=== PATIENT | male | born 1980 | race Caucasian/White ===

== ENCOUNTER 2019-11-12 07:44 | Emergency (ER) | payer BC ==
--- OUTSIDE RECORDS SUMMARY | 2019-11-12 07:46 | XMS REPORT | Continuity of Care Document ---
:1980 Author Organization [facility] t Address [address] [place] [address] Care Team Providers Name Role Phone Unavailable Unavailable Unavailable Payers Payer Name Policy Type Policy Number Effective Date Expiration Date S ource Problems This patient has no known problems. Allergies, Adverse Reactions, Alerts Allergy Allergy Status Severity Reaction(s) Onset Inactive Treating Comm ents Source Name Type Date Date Clinician Penic[place] DA Active ME 2019- [facility] ins 06-23 [facility] 00:00: d 00 [facility] erythrom DA Active SV 2017-04 [facility] ycin 04-10 [facility] base 00:00: d [facility] EES - DA Active U 2001-0 [facility] ERYTHROM 06-10 [facility] YCIN 00:00: d 00 [facility] Center No Known DA Active U 2001-0 [facility] Contrast 06-10 [facility] Allergie 00:00: d s 00 Medical Center No Known DA Active U 2001-0 [facility] Food 06-10 [facility] Allergie 00:00: d s 00 [facility] No Known DA Active U 2001-0 [facility] Other - [facility] Allergie 00:00: d s 00 Medical Center PENICILL DA Active U 2001-0 [facility] IN 06-10 [facility] 00:00: d 00 Medical Center Medications This patient has no known medications. Procedures This patient has no known procedures. Results Test Description Test Time Test Comments Results Result Sourc e Comments - XR FOOT 3 + V 2019-09-12 FAX: Y BI 13:36:00 Lj Agrawal MD [phone] [place]: St: REG FAX: Joe Maciel [phone] Name: EZRA RIDDLE [facility] [place] : 1980 Age/S: 39/M [address] Unit #: [id number] Loc: [place] [address] Phys: Joe Browning MD Acct: [id number] Dis Date: Status: REG CLI PHONE #: [phone] Exam Date: 09/12/2019 1232 FAX #: [phone] Reason: INFLAMMATORY POLYARTHROPATHY EXAMS: CPT CODE: [id number] XR FOOT 3 + [place] [address] X-ray right foot. Location code: B2 INDICATION: Inflammatory polyarthropathy FINDINGS: No priors. No evidence of an acute fracture or dislocation. Bones are well-mineralized and joint spaces well-maintained. Small plantar calcaneal spur. Mild soft tissue swelling. IMPRESSION: 1. No acute osseous abnormality. X-ray left foot. Location code: B2 INDICATION: Inflammatory polyarthropathy FINDINGS: No priors. No evidence of an acute fracture or dislocation. Bones are well-mineralized and joint spaces well-maintained. Small plantar calcaneal spur. Mild soft tissue swelling. IMPRESSION: 1. No acute osseous abnormality. at 8397 Reported and signed by: Luc Luque MD CC: Lj Agrawal MD; Joe Browning MD Technologist: СВЕТЛАНА LAZARO Trnscrd Date/Time/By: 09/12/2019 (5606) : By: [email or web address] PAGE 1 Signed Report FAX: Lj Mcnamara MD [phone] [place]: [facility]: REG FAX: Joe Maciel [phone] Name: EZRA RIDDLE [facility] : 1980 Age/S: 39/M [address] Unit #: [id number] Loc: [place] [address] Phys: Joe Browning MD Acct: [id number] Dis Date: Status: REG CLI PHONE #: [phone] Exam Date: 09/12/2019 1232 FAX #: [phone] Reason: INFLAMMATORY POLYARTHROPATHY EXAMS: CPT CODE: [id number] XR FOOT 3 [place] [address] <Continued> Orig Print D/T: S: 09/12/2019 (9088) PAGE 2 Signed Report - XR HAND 3 + V 2019-09-12 FAX: Rogerio BI 13:24:00 Lj Agrawal MD [phone] [place]: [facility]: REG FAX: Joe Maciel [phone] Name: EZRA RIDDLE [facility] : 1980 Age/S: 39/M [address] Unit #: [id number] Loc: [place] [address] Phys: Joe Browning MD Acct: [id number] Dis Date: Status: REG CLI PHONE #: [phone] Exam Date: 09/12/2019 1232 FAX #: [phone] Reason: INFLAMMATORY POLYARTHROPATHY EXAMS: CPT CODE: [id number] XR HAND 3 + [place] [address] Location code: B2 X-ray left hand 3 views. INDICATION: Inflammatory polyarthropathy. FINDINGS: No priors. No evidence of an acute fracture or dislocation. Chronic tuft injury involving the distal phalanges of the 4th and 5th digits. Minimal narrowing of the radiocarpal and 1st carpometacarpal joints. Moderate narrowing of the 1st MCP joint. No osseous erosive change. Carpal row is intact. Distal radioulnar joint is intact. 4.5 mm of negative ulnar variance. Mild soft tissue swelling. IMPRESSION: 1. No acute osseous abnormality. Mild soft tissue swelling. 2. Arthritis. Location code: B2 X-ray right hand 3 views. INDICATION: Inflammatory polyarthropathy. FINDINGS: No priors. No evidence of an acute fracture or dislocation. Chronic tuft fracture distal phalanx 4th digit. Minimal narrowing of the radiocarpal and 1st carpal metacarpal joints. Moderate narrowing of the 1st MCP joint. No osseous erosive change. Carpal row is intact. Distal radioulnar joint is intact. 6 mm of negative ulnar variance. Mild soft tissue swelling. IMPRESSION: 1. No acute osseous abnormality. Mild soft tissue swelling. 2. Arthritis at 1324 Reported and signed by: Luc Luque MD PAGE 1 Signed Report (CONTINUED) FAX: Lj Mcnamara MD [phone] [place]: St: [facility] FAX: Joe Maciel [phone] Name: EZRA RIDDLE [facility] [place] : 1980 Age/S: 39/M [address] Unit #: [id number] Loc: [place] [address] Phys: Joe Browning MD Acct: [id number] Dis Date: Status: REG CLI PHONE #: [phone] Exam Date: 09/12/2019 1232 FAX #: [phone] Reason: INFLAMMATORY POLYARTHROPATHY EXAMS: CPT CODE: [id number] XR HAND 3 [place] [address] <Continued> CC: Lj Agrawal MD; Joe Browning MD Technologist: СВЕТЛАНА LAZARO Date/Time/By: 09/12/2019 (5917) : By: [email or web address] PAGE 2 Signed Report FAX: Lj Mcnamara MD [phone] [place]: [facility]: REG FAX: Joe Maciel [phone] Name: EZRA RIDDLE [facility] : 1980 Age/S: 39/M [address] Unit #: [id number] Loc: [place] [address] Phys: Joe Browning MD Acct: [id number] Dis Date: Status: REG CLI PHONE #: [phone] Exam Date: 09/12/2019 1232 FAX #: [phone] Reason: INFLAMMATORY POLYARTHROPATHY EXAMS: CPT CODE: [id number] XR HAND 3 [place] [address] <Continued> Orig Print D/T: S: 09/12/2019 (0183) PAGE 3 Signed Report - XR WRIST 3 + V 2019-09-12 FAX: Y BI 13:22:00 Lj Agrawal MD [phone] [place]: [facility]: REG FAX: Joe Maciel [phone] Name: EZRA RIDDLE : 1980 Age/S: 39/M [address] Unit #: [id number] Loc: [place] [address] Phys: Joe Browning MD Acct: [id number] Dis Date: Status: REG CLI PHONE #: [phone] Exam Date: 09/12/2019 1232 FAX #: [phone] Reason: INFLAMMATORY POLYARTHROPATHY EXAMS: CPT CODE: [id number] XR WRIST 3 + [place] [address] Location code: B2 X-ray left wrist 3 views. INDICATION: Inflammatory polyarthropathy. FINDINGS: No priors. No evidence of an acute fracture or dislocation. Minimal narrowing of the radiocarpal and 1st carpometacarpal joints. Carpal row is intact. Distal radioulnar joint is intact. 4.5 mm of negative ulnar variance. Mild soft tissue swelling. IMPRESSION: 1. No acute osseous abnormality. Mild soft tissue swelling. Location code: B2 X-ray right wrist 3 views. INDICATION: Inflammatory polyarthropathy. FINDINGS: No priors. No evidence of an acute fracture or dislocation. Minimal narrowing of the radiocarpal and 1st carpal metacarpal joints. Carpal row is intact. Distal radioulnar joint is intact. 6 mm of negative ulnar variance. Mild soft tissue swelling. IMPRESSION: 1. No acute osseous abnormality. Mild soft tissue swelling. at 1322 Reported and signed by: Luc Luque MD CC: Lj Agrawal MD; Joe Browning MD Technologist: СВЕТЛАНА LAZARO Trnscrd Date/Time/By: 09/12/2019 (1322) : By: [email or web address] PAGE 1 Signed Report FAX: Lj Mcnamara MD [phone] [place]: St: REG FAX: Joe Maciel [phone] Name: EZRA RIDDLE [facility] : 1980 Age/S: 39/M [address] Unit #: [id number] Loc: [place] [address] Phys: Joe Browning MD Acct: [id number] Dis Date: Status: REG CLI PHONE #: [phone] Exam Date: 09/12/2019 1232 FAX #: [phone] Reason: INFLAMMATORY POLYARTHROPATHY EXAMS: CPT CODE: [id number] XR WRIST 3 [place] [address] <Continued> Orig Print D/T: S: 09/12/2019 (1580) PAGE 2 Signed Report - XR L-SPINE 2019-09-12 FAX: Y 4+VIEWS 13:21:00 Lj Agrawal MD [phone] [place]: [facility]: [facility] FAX: Joe Maciel [phone] Name: EZRA RIDDLE [facility] [place] : 1980 Age/S: 39/M [address] Unit #: [id number] Loc: [place] [address] Phys: Joe Browning MD Acct: [id number] Dis Date: Status: REG CLI PHONE #: [phone] Exam Date: 09/12/2019 1232 FAX #: [phone] Reason: INFLAMMATORY POLYARTHROPATHY EXAMS: CPT CODE: [id number] XR L-SPINE 4+VIEWS 27698 EXAM: XR LUMBAR SPINE 5 VIEWS INDICATION: INFLAMMATORY POLYARTHROPATHY LOCATION: B2 COMPARISON: None available TECHNIQUE: AP, coned lateral, oblique and lateral radiographs of the lumbar spine FINDINGS: 5 lumbar type, non-rib bearing vertebral bodies are present. The vertebral bodies are normal in height, alignment and density. The facet joints and spinous processes are normal in alignment. There is facet joint arthropathy the lower lumbar spine. There is disc height loss at L5-S1. The remaining intervertebral disc spaces are normal. Sacroiliac joints are normal. No soft tissue abnormality is identified. IMPRESSION: No acute osseous abnormality of the lumbar spine. 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 at 1321 Reported and signed by: Laya Queen MD CC: Lj Agrawal MD; Joe Browning MD Technologist: СВЕТЛАНА LAZARO [facility] Date/Time/By: 09/12/2019 (1321) : By: [email or web address] PAGE 1 Signed Report FAX: Lj Mcnamara MD [phone] [place]: St: REG FAX: Joe Maciel [phone] Name: EZRA RIDDLE : 1980 Age/S: 39/M [address] Unit #: [id number] Loc: [place] [address] Phys: Joe Browning MD Acct: [id number] Dis Date: Status: REG CLI PHONE #: [phone] Exam Date: 09/12/2019 1232 FAX #: [phone] Reason: INFLAMMATORY POLYARTHROPATHY EXAMS: CPT CODE: [id number] XR L-SPINE 4+VIEWS 54952 <Continued> Orig Print D/T: S: 09/12/2019 (9678) PAGE 2 Signed Report - XR KNEE 3 V BI 2019-09-12 FAX: Y 13:21:00 Lj Agrawal MD [phone] [place]: St: REG FAX: Y Joe Browning [phone] Name: EZRA RIDDLE [facility] : 1980 Age/S: 39/M [address] Unit #: [id number] Loc: [place] [address] Phys: Joe Browning MD Acct: [id number] Dis Date: Status: REG CLI PHONE #: [phone] Exam Date: 09/12/2019 1232 FAX #: [phone] Reason: INFLAMMATORY POLYARTHROPATHY EXAMS: CPT CODE: [id number] XR KN[place] [address] X-ray right knee. INDICATION: Pain FINDINGS: No priors. No evidence of an acute fracture or dislocation. Bones are well-mineralized and joint spaces well-maintained. Small Joint effusion seen. Mild medial and prepatellar soft tissue edema. IMPRESSION: 1. No acute osseous abnormality. X-ray left knee. INDICATION: Pain FINDINGS: No priors. No evidence of an acute fracture or dislocation. Bones are well-mineralized and joint spaces well-maintained. Small Joint effusion seen. Mild medial and prepatellar soft tissue edema. IMPRESSION: 1. No acute osseous abnormality. at 1321 Reported and signed by: Luc Luque MD CC: Lj Agrawal MD; Joe Browning MD Technologist: СВЕТЛАНА LAZARO [facility] Date/Time/By: 09/12/2019 (1321) : By: [email or web address] PAGE 1 Signed Report FAX: Lj Mcnamara MD [phone] [place]: [facility]: REG FAX: Joe Maciel [phone] Name: EZRA RIDDLE [facility] : 1980 Age/S: 39/M [address] Unit #: [id number] Loc: [place] [address] Phys: Joe Browning MD Acct: [id number] Dis Date: Status: REG CLI PHONE #: [phone] Exam Date: 09/12/2019 1232 FAX #: [phone] Reason: INFLAMMATORY POLYARTHROPATHY EXAMS: CPT CODE: [id number] XR K[place] [address] <Continued> Orig Print D/T: S: 09/12/2019 (8884) PAGE 2 Signed Report - XR CHEST 2 V 2019-09-12 FAX: Y 13:20:00 Lj Agrawal MD [phone] [place]: [facility]: REG FAX: Joe Maciel [phone] Name: EZRA RIDDLE [facility] : 1980 Age/S: 39/M [address] Unit #: [id number] Loc: [place] [address] Phys: Joe Browning MD Acct: [id number] Dis Date: Status: REG CLI PHONE #: [phone] Exam Date: 09/12/2019 1232 FAX #: [phone] Reason: INFLAMMATORY POLYARTHROPATHY EXAMS: CPT CODE: [id number] XR CHEST 2 V 03201 Location code: B2 HISTORY: Inflammatory polyarthropathy TECHNIQUE: Frontal and lateral views of the chest were obtained. FINDINGS: The cardiomediastinal silhouette is unremarkable. The trachea is midline. The lungs are clear. There is no effusion or pneumothorax. The bones are intact. IMPRESSION: No acute pulmonary process. at 1320 Reported and signed by: Luc Luque MD CC: Lj Agrawal MD; Joe Browning MD Technologist: СВЕТЛАНА LAZARO Date/Time/By: 09/12/2019 (1320) : By: [email or web address] PAGE 1 Signed Report FAX: Lj Mcnamara MD [phone] [place]: St: [facility] FAX: Joe Maciel [phone] Name: EZRA RIDDLE [facility] [place] : 1980 Age/S: 39/M [address] Unit #: [id number] Loc: [place] [address] Phys: Joe Browning MD Acct: [id number] Dis Date: Status: REG CLI PHONE #: [phone] Exam Date: 09/12/2019 1232 FAX #: [phone] Reason: INFLAMMATORY POLYARTHROPATHY EXAMS: CPT CODE: [id number] XR CHEST 2 V 09294 <Continued> Orig Print D/T: S: 09/12/2019 (8159) PAGE 2 Signed Report - XR C-SPINE 2-3 2019-09-12 FAX: Y VIEWS 13:18:00 Lj Agrawal MD [phone] [place]: St: REG FAX: Joe Maciel [phone] Name: EZRA RIDDLE [facility] [place] : 1980 Age/S: 39/M [address] Unit #: [id number] Loc: [place] [address] Phys: Joe Browning MD Acct: [id number] Dis Date: Status: REG CLI PHONE #: [phone] Exam Date: 09/12/2019 1232 FAX #: [phone] Reason: INFLAMMATORY POLYARTHROPATHY EXAMS: CPT CODE: [id number] XR C-SPINE 2-3 VIEWS 49498 EXAMINATION: CERVICAL SPINE 4 VIEWS INDICATION: INFLAMMATORY POLYARTHROPATHY LOCATION: B2 COMPARISON: CT dated August 03, 2015 TECHNIQUE: AP, swimmer's, open-mouth and lateral radiograph were obtained of the cervical spine. FINDINGS: 7 cervical vertebral bodies are identified on the lateral image. The atlantoaxial and atlantooccipital articulations are normal. The vertebral bodies are normal in height and density. There is straightening of the normal cervical lordosis. The facet joints and spinous processes are normal in alignment. The intervertebral disc heights are normal. The prevertebral soft tissues are normal. IMPRESSION: No acute abnormality of the cervical spine. at 1318 Reported and signed by: Laya Queen MD CC: Lj Agrawal MD; Joe Browning MD Technologist: СВЕТЛАНА LAZARO [facility] Date/Time/By: 09/12/2019 (3654) : By: [email or web address] PAGE 1 Signed Report FAX: Lj Mcnamara MD [phone] [place]: St: REG FAX: Joe Maciel [phone] Name: EZRA RIDDLE [facility] [place] : 1980 Age/S: 39/M [address] Unit #: [id number] Loc: [place] [id number] Phys: Joe Browning MD Acct: [id number] Dis Date: Status: REG CLI PHONE #: [phone] Exam Date: 09/12/2019 1232 FAX #: [phone] Reason: INFLAMMATORY POLYARTHROPATHY EXAMS: CPT CODE: [id number] XR C-SPINE 2-3 VIEWS 92461 <Continued> Orig Print D/T: S: 09/12/2019 (9482) PAGE 2 Signed Report - DUP 2019-09-05 FAX: Chris SALINAS/ORALIA/SC/LTD 07:49:00 Fer Dahl MD [phone] [place]: [facility] St: DIS Name: EZRA RIDDLE JR ED : 1980 Age/S: 39/M [address] [facility] Unit #: [id number] Loc: [address] [place] [address] Phys: Fer Dahl MD Acct: [id number] Dis Date: 20190904 Status: DIS IN PHONE #: Exam Date: 09/04/20196 FAX #: Reason: flank pain EXAMS: CPT CODE: [id number] DUP AB/PEL/SC/LTD 29374 EXAM: - US SCROTUM AND CNTS LOCATION: H61 INDICATION/CLINICAL HISTORY: testicular pain COMPARISON: None available.. TECHNIQUE: Grayscale, color doppler, and doppler waveform analysis was performed of the hemiscrotum bilaterally. FINDINGS: RIGHT HEMISCROTUM: Right Testicle Size - 3.7 x 2.1 x 5.3 cm Intratesticular flow - there is normal arterial and venous flow present. Parenchyma- Normal homogeneous echotexture without intratesticular mass. Epididymis - normal Additional findings - none LEFT HEMISCROTUM: Left Testicle Size - 4.9 x 2.3 x 3.1 cm Intratesticular flow - normal Parenchyma- arterial flow could not be obtained. There is venous flow present throughout the left testicle. Epididymis - normal Additional findings - none IMPRESSION: 1. Absence of arterial flow within the left testicle with preserved PAGE 1 Signed Report (CONTINUED) FAX: Fer De MD [phone] [place]: [facility] St: DIS Name: JANESSA EZRA LOVETT [place] : 1980 Age/S: 39/M [address] [facility] Unit #: [id number] Loc: [address] [address] Phys: Fer Dahl MD Acct: [id number] Dis Date: 20190904 Status: DIS IN PHONE #: Exam Date: 09/04/2019 FAX #: Reason: flank pain EXAMS: CPT CODE: [id number] [facility] AB/PEL/SC/LTD 18005 <Continued> venous flow may reflect early partial torsion. 2. Normal perfusion of the right testicle. 3. No orchitis or testicular mass. at 0749 Reported and signed by: Freeman Patrick MD CC: Fer Dahl MD Technologist: SEVERINO AGUILA Date/Time/By: 09/05/2019 (0749) : By: [email or web address] PAGE 2 Signed Report FAX: Fer De MD [phone] [place]: [facility] St: DIS Name: JANESSAEZRA NELSON JR FSED : 1980 Age/S: 39/M [address] [facility] Unit #: [id number] Loc: [address] [address] Phys: Fer Dahl MD Acct: [id number] Dis Date: [id number] Status: DIS IN PHONE #: Exam Date: 09/04/2019 0315 FAX #: Reason: flank pain EXAMS: CPT CODE: [id number] DUP AB/PEL/SC/LTD 92610 <Continued> Orig Print D/T: S: 09/05/2019 (0749) PAGE 3 Signed Report Coronavirus 2019 nCoV Bedside 2019-09-04 07:35:00 Test Item Value Reference Range Interpretation Comme nts Coronavirus 2019 nCoV Bedside Negative NEGATIVE This test has been authorized by (test code = COVNONPUIBED) Adán DA under an EUA for use byauthorized la [employer]; This test has been a uthorized only for the detection o fnucleic acid from SARS-CoV-2, not for any other viruses orpatho gens; and This test is only au thorized for the duration of the declaration that circumstances e xist justifying theauthorizatio n of emergency use of in vitro ian gnostic testsfor detection and/o r diagnosis of COVID-19 under Spghhrb895(b)(1) of the Act, 21 U.S .C. 360bbb-3(b)(1), unless theauthorizatio n is terminated or revoked sooner. I attest I have received Administrative Approval to enter the order. YESLIPID PROFILE (CORONARY RISK)2019-09-04 03:52:00 Test Item Value Reference Range Interpretation Comments TRIGLYCERIDES (test 149 mg/dL 50-200 N code = TRIG) CHOLESTEROL (test code 154 mg/dL 120-200 N = CHOL) HDL CHOLESTEROL (test 36 mg/dL 32-96 N code = HDL) LIPOPROTEIN LDL (test 92 MG/DL 0-99 N code = LDLC) CORONARY RISK FACTOR 4.28 (test code = RISK) CHOL/HDL RISK MALE: 1/2 AVG 3.43 FEMALE: 1/2 AV G 3.27 AVG 4.97 AVG 4.44 2X AVG 9.55 2X AVG 7.05 3X AVG 23.39 3X AVG 11.04~~~~~~~~~~ ~~~~~~~ ~~~~~~~~~~~~~~~ ~~~~~~~ ~~~~~~~~~~~~~~~ ~~~~~~N [facility] ivan Education (NHEP ) Guidelines:~~~~ ~~~~~~~ ~~~~~~~~~~~~~~~ ~~~~~~~ ~~~~~~~~~~~~~~~ ~~~~~~~ ~~~~~ HDL Cholesterol<4 0mg/dL: HDL Cholesterol (Major risk factor for CHD)>60mg/dL: H DL Cholesterol (Ne gative risk factor for CHD)40-59mg/dL: Borderline Risk L DL Cholesterol<1 00mg/dL : Desirable LDL -C fhavzrkzyjuuo42 0-159mg /dL: Borderline High Risk LDL-C qrzdnuxyzmasl20 0-189mg /dL: High risk LDL-C concentration H DL-LDL Cholesterol is affected by a n umber of factors such as smoking, age an d sex.~~~~~~~~~~~ ~~~~~~~ ~~~~~~~~~~~~~~~ ~~~~~~~ ~~~~~~~~~~~~~~~ ~~~~~ - CT ABD PELVIS W/O [id number] 03:42:00 FAX: Fer De MD [phone] [place]: [facility] St: REG [facility]: [facility] 1980 Age/S: 39/M [address] [facility] Unit: [id number] Loc: [place] [address] Phys: Fer Dahl MD Acct: [id number] Dis Date: Status: REG ER PHONE #: Exam Date: 09/04/2019 0333 FAX #: Reason: flank pain EXAMS: CPT CODE: [id number] CT ABD PELVIS W/O CONT 11009 EXAM: - CT ABD PELVIS W/O CONT HISTORY: Flank pain. TECHNIQUE: Axial tomograms through the abdomen and pelvis were obtained without intravenous or enteric contrast. Coronal and sagittal reformatted images are provided. This exam was performed according to our departmental dose-optimization program, which includes automated exposure control, adjustment of the mA and/or kV according to patient size and/or use of iterative reconstruction technique. COMPARISON: None available time of interpretation. FINDINGS: The visualized lung bases are clear. The kidneys are symmetric in size. Right renal collecting system and right ureter are minimally prominent compared to left side. No renal or ureteral calculi are demonstrated. The unenhanced visualized spleen, pancreas, and bilateral adrenals demonstrate no significant abnormalities. There is fatty infiltration of the liver. There is no fluid collection or pelvic adenopathy. The unopacified bowel is unremarkable. The appendix is not identified. There are no secondary signs of appendicitis. Degenerative disc disease at L5-S1 level. IMPRESSION: Minimally prominent right ureter. No evidence of ureteral calculus. A recently passed calculus from right side is a possibility. Other findings as above. PAGE 1 Signed Report (CONTINUED) FAX: Fer De MD [phone] [place]: [facility] St: REG -- Name: EZRA RIDDLE JR FSED : 1980 Age/S: 39/M [address] [facility] Unit: [id number] Loc: [place] [address] Phys: Fer Dahl MD Acct: [id number] Dis Date: Status: REG ER PHONE #: ExamDate: 09/04/2019 4117 FAX #: Reason: flank pain EXAMS: CPT CODE: [id number] CT ABD PELVIS W/O CONT 22365 <Continued> at 0342 Reported and signed by: Mac Rahman MD CC: Fer Dahl MD Technologist: SEVERINO AGUILA Dt/Tm: 09/04/2019 (034)[email or web address] Orig Print D/T: S: 09/04/2019 (0346 PAGE 2 Signed ReportURINALYSIS [id number] 03:40:00 Test Item Value Reference Range Interpretation Comments UA COLOR (test code = COLU) YELLOW YELLOW UA APPEARANCE (test code = Clear CLEAR APPU) UA GLUCOSE DIPSTICK (test code Negative MG/DL NEGATIVE = DGLUU) UA BILIRUBIN DIPSTICK (test Negative NEGATIVE code = BILU) UA KETONE DIPSTICK (test code Negative MG/DL NEGATIVE = KETU) UA SPECIFIC GRAVITY (test code >=1.030 1.000-1.030 A = SGU) UA BLOOD DIPSTICK (test code = 2+ NEGATIVE A HOLLAND) UA PH DIPSTICK (test code = 5.5 4.5-8.5 ELI) UA PROTEIN DIPSTICK (test code NEGATIVE MG/DL NEGATIVE = PROU) UA UROBILINOGEN DIPSTICK (test 0.2 EU/dL <=1.0 code = URO) UA NITRITE DIPSTICK (test code Negative NEGATIVE = MARLEN) UA LEUKOCYTE ESTERASE DIPSTICK NEGATIVE NEGATIVE (test code = LEUU) UA WBC (test code = WBCU) 0-3 /HPF 0-3 UA RBC (test code = RBCU) 6-10 /HPF 0-3 UA EPITHELIAL CELLS (test code FEW /LPF NONE-FEW = EPIU) UA BACTERIA (test code = BACU) 1+ /HPF NEGATIVE A URINALYSIS [id number] 03:39:00 Test Item Value Reference Range Interpretation Comments UA COLOR (test code = COLU) YELLOW YELLOW UA APPEARANCE (test code = Clear CLEAR APPU) UA GLUCOSE DIPSTICK (test code Negative MG/DL NEGATIVE = DGLUU) UA BILIRUBIN DIPSTICK (test Negative NEGATIVE code = BILU) UA KETONE DIPSTICK (test code Negative MG/DL NEGATIVE = KETU) UA SPECIFIC GRAVITY (test code >=1.030 1.000-1.030 A = SGU) UA BLOOD DIPSTICK (test code = 2+ NEGATIVE A HOLLAND) UA PH DIPSTICK (test code = 5.5 4.5-8.5 ELI) UA PROTEIN DIPSTICK (test code NEGATIVE MG/DL NEGATIVE = PROU) UA UROBILINOGEN DIPSTICK (test 0.2 EU/dL <=1.0 code = URO) UA NITRITE DIPSTICK (test code Negative NEGATIVE = MARLEN) UA LEUKOCYTE ESTERASE DIPSTICK NEGATIVE NEGATIVE (test code = LEUU) UA WBC (test code = WBCU) /HPF 0-3 UA RBC (test code = RBCU) /HPF 0-3 UA EPITHELIAL CELLS (test code /LPF NONE-FEW = EPIU) UA BACTERIA (test code = BACU) /HPF NEGATIVE - US SCROTUM AND [id number] 03:23:00 FAX: Fer De MD [phone] [place]: [address]: REG Name: EZRA RIDDLE JRFSED : 1980 Age/S: 39/M [address] [facility] Unit#: [id number] Loc: [place] [address] Phys: Fer Dahl MD Acct: [id number] Dis Date: Status: REG ER PHONE #: Exam Date: 09/04/2019 0315 FAX #: Reason: testicular pain EXAMS: CPT CODE: [id number] US SCROTUM AND CNTS 04737 EXAM: - US SCROTUM AND CNTS LOCATION: H61 INDICATION/CLINICAL HISTORY: testicular pain COMPARISON: None available.. TECHNIQUE: Grayscale, color doppler, and doppler waveform analysis was performed of the hemiscrotum bilaterally. FINDINGS: RIGHT HEMISCROTUM:Right Testicle Size - 3.7 x 2.1 x 5.3 cm Intratesticular flow - there is normal arterial and venous flow present. Parenchyma- Normal homogeneous echotexture without intratesticular mass. Epididymis - normal Additional findings - none LEFT HEMISCROTUM: Left Testicle Size - 4.9 x 2.3 x 3.1 cm Intratesticular flow - normal Parenchyma- arterial flow could not be obtained. There is venous flow present throughout the left testicle. 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 2. Normal perfusion of the right testicle. 3. No orchitis or testicular mass. at 0323 Reported and signed by: Freeman Patrick MD CC: Fer Dahl MD Technologist: SEVERINO AGUILA Trnelenard Date/Time/By: 09/04/2019 (322) : By: [email or web address] PAGE 2 Signed Report FAX: Fer De MD [phone] [place]: [facility] St: REG Name: EZRA RIDDLE JR [facility] : 1980 Age/S: 39/M [address] [facility] Unit #: [id number] Loc: [place] [address] Phys: Fer Dahl MD Acct: [id number] Dis Date: Status: REG ER PHONE #: Exam Date: 09/04/2019314 FAX #: Reason: testicular pain EXAMS: CPT CODE: [id number] US SCROTUM AND CNTS 14953 <C ontinued> Orig Print D/T: S: 09/04/2019 (326) PAGE 3 Signed ReportCOMPREHENSIVE METABOLIC [id number] 02:29:00 Test Item Value Reference Range Interpretation Comments SODIUM (test code = 137 MMOL/L 135-147 N NA) POTASSIUM (test code 4.0 MMOL/L 3.6-5.2 N = K) CHLORIDE (test code = 103 MMOL/L 98-108 N CL) CARBON DIOXIDE (test 23 mmol/L 21-32 N code = CO2) GLUCOSE (test code = 147 mg/dL 70-110 H GLU) BLOOD UREA NITROGEN 24 MG/DL 6-21 H (test code = BUN) GLOMERULAR FILTRATION 71 >60 The es timated RATE (test code = glomerular filtration GFR) rate is compute d usingpatient ra ce, age (>18), sex, and serum creatinine. If anyof the needed data elements are mi ssing the Laboratory cannot compute an frandy mation of the glomerul ar filtration rate . CREATININE (test code 1.2 mg/dL 0.6-1.3 N = CREAT) TOTAL PROTEIN (test 7.7 g/dL 6.0-8.2 N code = PROT) ALBUMIN (test code = 3.8 G/DL 3.7-5.5 N ALB) CALCIUM (test code = 8.9 mg/dL 8.7-10.5 N CA) BILIRUBIN TOTAL (test 0.60 mg/dL 0.0-1.0 N code = BILT) SGOT/AST (test code = 31 UNITS/L 10-37 N AST) SGPT/ALT (test code = 52 UNITS/L 12-78 N ALT) ALKALINE PHOSPHATASE 61 UNITS/L 46-116 N (test code = ALKP) [id number] 02:29:00 Test Item Value Reference Range Interpretation Comments LIPASE (test code = LIP) 124 UNITS/L 73-393 N COMPREHENSIVE METABOLIC [id number] 02:23:00 Test Item Value Reference Range Interpretation Comments SODIUM (test code = NA) 137 MMOL/L 135-147 N POTASSIUM (test code = K) 4.0 MMOL/L 3.6-5.2 N CHLORIDE (test code = CL) 103 MMOL/L 98-108 N CARBON DIOXIDE (test code = CO2) 23 mmol/L 21-32 N GLUCOSE (test code = GLU) 147 mg/dL 70-110 H BLOOD UREA NITROGEN (test code = MG/DL 6-21 BUN) GLOMERULAR FILTRATION RATE (test >60 code = GFR) CREATININE (test code = CREAT) mg/dL 0.6-1.3 TOTAL PROTEIN (test code = PROT) g/dL 6.0-8.2 ALBUMIN (test code = ALB) G/DL 3.7-5.5 CALCIUM (test code = CA) mg/dL 8.7-10.5 BILIRUBIN TOTAL (test code = BILT) mg/dL 0.0-1.0 SGOT/AST (test code = AST) UNITS/L 10-37 SGPT/ALT (test code = ALT) UNITS/L 12-78 ALKALINE PHOSPHATASE (test code = UNITS/L 46-116 ALKP) [id number] 02:23:00 Test Item Value Reference Range Interpretation Comments LIPASE (test code = LIP) UNITS/L 73-393 CBC W/AUTO [id number] 02:18:00 Test Item Value Reference Range Interpretation Comments WHITE BLOOD CELL (test code = 10.6 x10 3/uL 5.0-12.0 N WBC) RED BLOOD CELL (test code = 5.44 x10 6/uL 4.70-6.10 N RBC) HEMOGLOBIN (test code = HGB) 16.0 g/dL 14.0-18.0 N HEMATOCRIT (test code = HCT) 47.8 % 37.0-49.0 N MEAN CELL VOLUME (test code = 88 fL 80-94 N MCV) MEAN CELL HGB (test code = MCH) 29.4 pg 27-31 N MEAN CELL HGB CONCENTRATION 33.5 g/dL 33-37 N (test code = MCHC) RED CELL DISTRIBUTION WIDTH 13.2 % 11.5-15.5 N (test code = RDW) PLATELET COUNT (test code = 335 x10 3/uL 130-400 N PLT) MEAN PLATELET VOLUME (test code 9.2 fL 9.4-16.4 L = MPV) NEUTROPHIL % (test code = NT%) 52.4 % 43-65 N IMMATURE GRANULOCYTE % (test 0.6 % 0.0-2.0 N code = IG%) LYMPHOCYTE % (test code = LY%) 34.0 % 20.5-45.5 N MONOCYTE % (test code = MO%) 8.5 % 5.5-11.7 N EOSINOPHIL % (test code = EO%) 4.1 % 0.9-2.9 H BASOPHIL % (test code = BA%) 0.4 % 0.2-1.0 N NEUTROPHIL # (test code = NT#) 5.57 x10 3/uL 2.2-4.8 H IMMATURE GRANULOCYTE # (test 0.06 x10 3/uL 0-0.03 H code = IG#) LYMPHOCYTE # (test code = LY#) 3.61 x10 3/uL 1.3-2.9 H MONOCYTE # (test code = MO#) 0.90 x10 3/uL 0.3-0.8 H EOSINOPHIL # (test code = EO#) 0.43 x10 3/uL 0.0-0.2 H BASOPHIL # (test code = BA#) 0.04 x10 3/uL 0.0-0.1 N FORESKIN, OTHER THAN [id number] 18:35:00 RUN DATE: 03/31/19 [facility] PAGE 1 RUN TIME: 1835 Specimen Inquiry RUN USER: INTERFACE PATIENT: EZRA RIDDLE JR LOC: MYRNA U #: [id number] AGE/SX: 38/M ROOM: RE03/28/19REG DR: Parveen Andrews MD : [birth year] BED: DIS: STATUS: [facility] TLOC: SPEC #: [id number] RECD: 03/28/19 STATUS: YOSHI LUX #: [id number] JASPAL: 03/28/19-[address] [facility] [address]: Parveen Andrews MD ENTERED: 03/28/19-1450 SP TYPE: FORESKIN OTHR DR: No Primary Care Physician ORDERED: PATHGM3/2, # OF BLOCKS/3, # OF SLIDES/3 TISSUES: A. FORESKIN B. VAS DEFERENS, NOS CLINICAL HISTORY DESIRED STERILIZATION FINAL MICROSCOPIC DIAGNOSIS A. FORES[place], CIRCUMCISION: - LICHEN SCLEROSUS B. VAS DEFERENS, VASECTOMY: - COMPLETE SURGICAL TRANSECTION OF BENIGN VAS DEFERENS (TWO PIECES) CPT: 29742, 86019 GROSS DESCRIPTION Specimen A: In formalin labeled with the patient's name, medical record number and "foreskin" is a 6.0 x 2.0 x 0.5 cm pale wesley, wrinkled portion of skin with scant subcutaneous soft tissue. Sectioning reveals no discrete masses. Account Retention Representative sections are submitted in cassette A1. Specimen B: In f ormalin labeled with the patient's name, medical record number and "vas deferens" are two chin-white cylindrical, tubular structures measuring 0.6 cm and 1.0 cm in length and 0.2 cm in diameter. Laterality is not indicated. The specimen is entirely submitted as follows: B1, shorter segment; B2, longer segment. OK/DB/tb Signed SIGNATURE ON FILE Ashutosh Poon 03/31/19 1375 END OF REPORT BASIC METABOLIC [id number] 11:06:00 Test Item Value Reference Range Interpretation Comments SODIUM (test code = 140 mmol/L 137-145 N NA) POTASSIUM (test code 4.3 mmol/L 3.4-5.0 N = K) CHLORIDE (test code = 104 mmol/L 98-107 N CL) CARBON DIOXIDE (test 28 mmol/L 22-30 N code = CO2) GLUCOSE (test code = 113 mg/dL 74-106 H GLU) BLOOD UREA NITROGEN 16 mg/dL 9-20 N (test code = BUN) GLOMERULAR FILTRATION 100 >60 The es timated RATE (test code = glomerular filtration GFR) rate is compute d usingpatient ra ce, age (>18), sex, and serum creatinine. If anyof the needed data elements are mi ssing the Laboratory cannot compute an frandy mation of the glomerul ar filtration rate . CREATININE (test code 0.9 mg/dL 0.7-1.3 N = CREAT) CALCIUM (test code = 8.8 mg/dL 8.4-10.2 N CA) [id number] 11:06:00 Test Item Value Reference Range Interpretation Comments SGOT/AST (test code = AST) 41 U/L 15-46 N URINALYSIS [id number] 10:55:00 Test Item Value Reference Range Interpretation Comments UA COLOR (test code = COLU) Yellow Yellow UA APPEARANCE (test code = Clear Clear APPU) UA GLUCOSE DIPSTICK (test Negative Negative code = DGLUU) UA BILIRUBIN DIPSTICK (test Negative Negative code = BILU) UA KETONE DIPSTICK (test code Negative mg/dL Negative = KETU) UA SPECIFIC GRAVITY (test 1.024 <1.030 code = SGU) UA BLOOD DIPSTICK (test code Negative Negative = HOLLAND) UA PH DIPSTICK (test code = 5.0 5.0-8.0 ELI) UA PROTEIN DIPSTICK (test NEGATIVE mg/dL Negative code = PROU) UA UROBILINOGEN DIPSTICK Negative mg/dL Negative (test code = URO) UA NITRITE DIPSTICK (test Negative Negative code = MARLEN) UA LEUKOCYTE ESTERASE NEGATIVE Negative DIPSTICK (test code = LEUU) UA WBC (test code = WBCU) 0-3 /HPF <4-5 UA RBC (test code = RBCU) 0-3 /HPF <4-5 UA BACTERIA (test code = None /HPF None-Rare BACU) UA SQUAMOUS CELLS (test code 0-5 (RARE) /HPF 0-5 (RARE) = SQU) UA MUCUS (test code = MUCU) 1+ /LPF <Rare A Spec Comments: PREOPCBC W/AUTO [id number] 10:50:00 Test Item Value Reference Range Interpretation Comments WHITE BLOOD CELL (test code = 9.6 x10 3/uL 5.0-12.0 N WBC) RED BLOOD CELL (test code = 5.52 x10 6/uL 4.70-6.10 N RBC) HEMOGLOBIN (test code = HGB) 16.1 g/dL 14.0-18.0 N HEMATOCRIT (test code = HCT) 49.9 % 37.0-49.0 H MEAN CELL VOLUME (test code = 90 fL 80-94 N MCV) MEAN CELL HGB (test code = MCH) 29.2 pg 27-31 N MEAN CELL HGB CONCENTRATION 32.3 g/dL 33-37 L (test code = MCHC) RED CELL DISTRIBUTION WIDTH 13.7 % 11.5-15.5 N (test code = RDW) PLATELET COUNT (test code = 320 x10 3/uL 130-400 N PLT) MEAN PLATELET VOLUME (test code 9.4 fL 9.4-16.4 N = MPV) NEUTROPHIL % (test code = NT%) 68.8 % 43-65 H IMMATURE GRANULOCYTE % (test 0.8 % 0.0-2.0 N code = IG%) LYMPHOCYTE % (test code = LY%) 19.0 % 20.5-45.5 L MONOCYTE % (test code = MO%) 7.5 % 5.5-11.7 N EOSINOPHIL % (test code = EO%) 3.5 % 0.9-2.9 H BASOPHIL % (test code = BA%) 0.4 % 0.2-1.0 N NUCLEATED RBC % (test code = 0.0 % 0-1.0 N NRBC%) NEUTROPHIL # (test code = NT#) 6.57 x10 3/uL 2.2-4.8 H IMMATURE GRANULOCYTE # (test 0.08 x10 3/uL 0-0.03 H code = IG#) LYMPHOCYTE # (test code = LY#) 1.82 x10 3/uL 1.3-2.9 N MONOCYTE # (test code = MO#) 0.72 x10 3/uL 0.3-0.8 N EOSINOPHIL # (test code = EO#) 0.33 x10 3/uL 0.0-0.2 H BASOPHIL # (test code = BA#) 0.04 x10 3/uL 0.0-0.1 N
--- NOTE | 2019-11-12 08:07 | ER ---
Nurse's Notes [facility] Name: Cong Ahmadi Jr Age: 39 yrs Sex: Male : 1980 Arrival Date: 11/12/2019 Time: 07:47 Bed 16 Private MD: Diagnosis: Rash and other nonspecific skin eruption Presentation: 11/11 08:01 Chief complaint: Patient states: Pt presents with c/o allergic rxn rash that started 2 jr10 weeks ago when he was started on hydroxychloroquine for RA. Pt reports that he is already on a steroid and was given an epi pen without relief. Denies any sob, airway patent, speaking in clear coherent sentences, ambulatory to room without difficulty. Coronavirus screen: Client denies travel out of the [place] in the last 14 days. At this time, the client does not indicate any symptoms associated with coronavirus-19. Ebola Screen: No symptoms or risks identified at this time. Onset: The symptoms/episode began/occurred gradually. Anaphylaxis evaluation, no signs or symptoms of anaphylaxis were noted. Initial Sepsis Screen: Does the patient meet any 2 criteria? No. Patient's initial sepsis screen is negative. Does the patient have a suspected source of infection? No. Patient's initial sepsis screen is negative. Risk Assessment: Do you want to hurt yourself or someone else?. Onset of symptoms is unknown. 08:01 Method Of Arrival: Ambulatory jr10 08:01 Acuity: BRANDON 3 jr10 Historical: - Allergies: 08:04 Hydroxychloroquine; jr10 08:07 PENICILLINS; jr10 08:07 Erythrocin; jr10 - Home Meds: 08:07 prednisone 20 mg Oral tab 1 tab 3 times per day [Active]; jr10 - PMHx: 08:07 Rheumatoid Arthritis; jr10 - Immunization history:: Adult Immunizations up to date. - Social history:: Smoking status: unknown. Screenin:05 Abuse screen: Denies threats or abuse. Denies injuries from another. Nutritional jr10 screening: No deficits noted. Tuberculosis screening: No symptoms or risk factors identified. Fall Risk None identified. Assessment: 08:05 Reassessment: see triage note. General: Appears in no apparent distress. Behavior is jr10 calm, cooperative, appropriate for age. Pain: Denies pain. Respiratory: Airway is patent Respiratory effort is even, unlabored, Respiratory pattern is regular, symmetrical, Breath sounds are clear bilaterally. 08:05 Derm: Skin is intact, Skin is dry, Skin is red, Skin temperature is warm Rash noted jr10 that is red. Vital Signs: 08:07 BP 140 / 100; Pulse 99; Resp 20; Temp 98.3(O); Pulse Ox 98% on R/A; Weight 154.22 kg; jr10 Height 5 ft. 9 in. (175.26 cm); Pain 0/10; 08:07 Body Mass Index 50.21 (154.22 kg, 175.26 cm) jr10 ED Course: 07:47 Patient arrived in ED. ag5 07:54 Mariajose Hernandez FNP-C [facility]. kb 07:54 Douglas Pollack MD is Attending Physician. kb 08:01 Amira Villanueva, RN is Primary Nurse. jr10 08:04 Triage completed. jr10 08:05 Arm band placed on. jr10 08:05 Patient has correct armband on for positive identification. Bed in low position. Call jr10 light in reach. 08:21 No provider procedures requiring assistance completed. Patient did not have IV access jr10 during this emergency room visit. Administered Medications: 08:18 CANCELLED (on back order; pt sent home with Rx): Pepcid 20 mg PO once jr10 Outcome: 08:06 Discharge ordered by . kb 08:22 Discharged to home ambulatory. jr10 08:22 Condition: good 08:22 Discharge instructions given to patient, Instructed on discharge instructions, follow up and referral plans. Demonstrated understanding of instructions, follow-up care, medications, Prescriptions given X 1. 08:22 Patient left the ED. jr10 Signatures: Mariajose Hernandez FNP-C FNP-Ckb Gaskin, Ajare ag5 Amira Villanueva, RN RN jr10
--- NOTE | 2019-11-12 08:07 | EDPHYS ---
Physician Documentation [facility] Name: Cong Ahmadi Jr Age: 39 yrs Sex: Male : 1980 Arrival Date: 11/12/2019 Time: 07:47 Bed 16 Private MD: ED Physician Douglas Pollack HPI: 11/11 08:17 This 39 yrs old Male presents to ER via Ambulatory with complaints of kb Allergic Reaction. 08:17 The patient presents with itching, rash. Onset: The symptoms/episode began/occurred 2 kb week(s) ago. Associated signs and symptoms: Pertinent positives: rash, Pertinent negatives: abdominal pain, Altered mental status chest pain, dysphagia, fever, headache, hives, Light headed nausea, shortness of breath, swelling, Syncope vomiting. Possible causes: hydroxychloroquine. At home the patient or guardian has treated the symptoms with steroids. Severity of symptoms: At their worst the symptoms were moderate in the emergency department the symptoms are unchanged. The patient has not experienced similar symptoms in the past. The patient has been recently seen by a physician:. Pt reports he was recently diagnosed with RA. His building custodial supervisor prescribed medications for that, but they weren't working so his PCP put him on hydroxychloroquine to treat it. States he was on that for 1-2 weeks and started having a rash. Has been to a different ER twice for this rash and is on prednisone 20mg TID currently, but rash and itching persist. . Historical: - Allergies: 08:04 Hydroxychloroquine; jr10 08:07 PENICILLINS; jr10 08:07 Erythrocin; jr10 - Home Meds: 08:07 prednisone 20 mg Oral tab 1 tab 3 times per day [Active]; jr10 - PMHx: 08:07 Rheumatoid Arthritis; jr10 - Immunization history:: Adult Immunizations up to date. - Social history:: Smoking status: unknown. ROS: 08:17 Constitutional: Negative for fever, chills, and weight loss, Cardiovascular: Negative kb for chest pain, palpitations, and edema, Respiratory: Negative for shortness of breath, cough, wheezing, and pleuritic chest pain, Abdomen/GI: Negative for abdominal pain, nausea, vomiting, diarrhea, and constipation, Back: Negative for injury and pain, MS/Extremity: Negative for injury and deformity, Neuro: Negative for headache, weakness, numbness, tingling, and seizure. 08:17 Skin: Positive for rash. Exam: 08:17 Constitutional: This is a well developed, well nourished patient who is awake, alert, kb and in no acute distress. Head/Face: Normocephalic, atraumatic. Chest/axilla: Normal chest wall appearance and motion. Nontender with no deformity. No lesions are appreciated. Cardiovascular: Regular rate and rhythm with a normal S1 and S2. No gallops, murmurs, or rubs. Normal PMI, no JVD. No pulse deficits. Respiratory: Lungs have equal breath sounds bilaterally, clear to auscultation and percussion. No rales, rhonchi or wheezes noted. No increased work of breathing, no retractions or nasal flaring. Abdomen/GI: Soft, non-tender, with normal bowel sounds. No distension or tympany. No guarding or rebound. No evidence of tenderness throughout. Back: No spinal tenderness. No costovertebral tenderness. Full range of motion. MS/ Extremity: Pulses equal, no cyanosis. Neurovascular intact. Full, normal range of motion. Neuro: Awake and alert, GCS 15, oriented to person, place, time, and situation. Cranial nerves II-XII grossly intact. Motor strength 5/5 in all extremities. Sensory grossly intact. Cerebellar exam normal. Normal gait. 08:17 Skin: consistent with drug rash, and is diffusely located. Vital Signs: 08:07 BP 140 / 100; Pulse 99; Resp 20; Temp 98.3(O); Pulse Ox 98% on R/A; Weight 154.22 kg; jr10 Height 5 ft. 9 in. (175.26 cm); Pain 0/10; 08:07 Body Mass Index 50.21 (154.22 kg, 175.26 cm) jr10 MDM: 08:05 Patient medically screened. kb 08:17 Data reviewed: vital signs, nurses notes. Data interpreted: Pulse oximetry: on room air kb is 98 %. Interpretation: normal. Counseling: I had a detailed discussion with the patient and/or guardian regarding: the historical points, exam findings, and any diagnostic results supporting the discharge/admit diagnosis, the need for outpatient follow up, a revenue cycle specialist, to return to the emergency department if symptoms worsen or persist or if there are any questions or concerns that arise at home. Special discussion: I have referred the patient to see his PCP for further evaluation of high blood pressure. ED course: Pt reports 140/100 is normal for him. States he lives out of town and will go home today to follow up with revenue cycle specialist. Administered Medications: 08:18 CANCELLED (on back order; pt sent home with Rx): Pepcid 20 mg PO once jr10 Disposition: 15:56 Co-signature as Attending Physician, Douglas Pollack MD I agree with the assessment and kdr plan of care. Disposition: 11/12/19 08:06 Discharged to Home. Impression: Rash and other nonspecific skin eruption. - Condition is Stable. - Discharge Instructions: Rash, Fkij-yh-Qokt, Allergies, Sgie-yd-Ttow. - Prescriptions for Pepcid 20 mg Oral Tablet - take 1 tablet by ORAL route every 12 hours for 5 days; 10 tablet. - Medication Reconciliation Form, Thank You Letter, Antibiotic Education, Prescription Opioid Use form. - Follow up: Emergency Department; When: As needed; Reason: Worsening of condition. Follow up: Private Physician; When: 2 - 3 days; Reason: Recheck today's complaints, Continuance of care, Re-evaluation by your physician. Signatures: Mariajose Hernandez, CHIEF WRITER-C CHIEF WRITER-Douglas Styles MD MD [facility] Amira Villanueva RN RN jr10 Corrections: (The following items were deleted from the chart) 08:18 08:05 Pepcid 20 mg PO once ordered. kb jr10 08:18 08:18 Pepcid 20 mg PO once ordered. jr10 jr10 08:22 08:06 11/12/2019 08:06 Discharged to Home. Impression: Rash and other nonspecific skin jr10 eruption. Condition is Stable. Forms are Medication Reconciliation Form, Thank You Letter, Antibiotic Education, Prescription Opioid Use. Follow up: Emergency Department; When: As needed; Reason: Worsening of condition. Follow up: Private Physician; When: 2 - 3 days; Reason: Recheck today's complaints, Continuance of care, Re-evaluation by your physician. kb
[2019-11-12 08:29] VITALS: BP 140/100; TEMP 98.3; O2SAT 98
== END 2019-11-12 08:22 | disposition home or self-care (01) ==
LOC: ER 07:44
DX: R21 Rash and other nonspecific skin eruption (principal); Z88.0 Allergy status to penicillin; Z88.3 Allergy status to other anti-infective agents; Z88.8 Allergy status to other drugs, medicaments and biological substances
CPT/HCPCS: 99282